=== PATIENT | female | born 1965 | race Caucasian/White ===

== ENCOUNTER 2020-08-11 07:07 | Emergency (ER) | payer BC ==
[2020-08-11] MEDS ORDERED: Acetaminophen 500 MG Tab PO ONE (07:11)
[2020-08-11] MEDS ORDERED: Ibuprofen 800 MG Tab PO ONE (07:12)
[2020-08-11] MEDS ORDERED: Aspirin 81 MG Tab.EC PO ONE (07:29)
[2020-08-11] MEDS ORDERED: Aspirin 81 MG Tab.Chew PO ONE (07:32)
[2020-08-11] MEDS ORDERED: Nitroglycerin 0.4 MG Tab.SL SL ONE (07:37)
--- NOTE | 2020-08-11 08:03 | EDM.PDOC ---
ED HPI GENERAL MEDICAL PROBLEM - General Chief Complaint: General Stated Complaint: CHEST IS BURNING Time Seen by Provider: 08/11/20 07:15 Source of Information: Reports: Patient History Limitations: Reports: No Limitations - History of Present Illness INITIAL COMMENTS - FREE TEXT/NARRATIVE: Patient presented to the ED because of dental pain, chest tightness which started yesterday. there is no nausea, vomiting, dyspnea. There is no fever or chills, cough/cold symptoms. She is concerned because she had AMI with stent placement in January 2019. 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 - Related Data Allergies Allergy/AdvReac Type Severity Reaction Status Date / Time No Known Allergies Allergy Verified 08/11/20 07:18 ED ROS GENERAL - Review of Systems Review Of Systems: See Below Constitutional: Reports: No Symptoms HEENT: Reports: Dental Pain Respiratory: Reports: No Symptoms Cardiovascular: Reports: Chest Pain Endocrine: Reports: No Symptoms GI/Abdominal: Reports: No Symptoms : Reports: No Symptoms Musculoskeletal: Reports: No Symptoms Skin: Reports: No Symptoms ED EXAM, GENERAL - Physical Exam Exam: See Below Exam Limited By: No Limitations General Appearance: Alert, No Apparent Distress Eye Exam: Bilateral Eye: PERRL Ears: Normal External Exam Nose: Normal Inspection, Normal Mucosa, No Blood Throat/Mouth: Normal Inspection, Normal Lips, Normal Teeth, Normal Gums Head: Atraumatic, Normocephalic Neck: Normal Inspection, Supple, Non-Tender, Full Range of Motion Respiratory/Chest: No Respiratory Distress, Lungs Clear, Normal Breath Sounds, No Accessory Muscle Use, Chest Non-Tender Cardiovascular: Normal Peripheral Pulses, Regular Rate, Rhythm, No Edema, No Gallop, No JVD, No Murmur, No Rub GI/Abdominal: Normal Bowel Sounds, Soft, Non-Tender, No Organomegaly Back Exam: Normal Inspection, Full Range of Motion Extremities: Normal Inspection, Normal Range of Motion, Non-Tender Neurological: Alert, Oriented, CN II-XII Intact, Normal Cognition Psychiatric: Anxious, Depressed Mood Skin Exam: Warm, Dry, Intact Course - Vital Signs Text/Narrative:: Labs/EKG was discussed with patient Aspirin 324 po x1 Heparin bolus 4000 U IV Heparin drip @ 1000 U/Hr Case discussed with Dr Sierra Anthony Recorded V/S: Last Vital Signs Temp -17.6 C L 08/11/20 07:20 Pulse 81 08/11/20 07:20 Resp 18 08/11/20 07:20 BP 134/91 H 08/11/20 07:55 Pulse Ox 98 08/11/20 07:20 - Orders/Labs/Meds Orders: Active Orders 24 hr Category Date Time Status EKG Documentation Completion [RC] ASDIRECTED Care 08/11/20 07:11 Active Chest 1V Frontal [CR] Stat Exams 08/11/20 08:21 Ordered D-DIMER QUANTITATIVE [COAG] Stat Lab 08/11/20 07:40 Received PRO B-TYPE NATRIUR PEPT,BNPPRO [CHEM] Stat Lab 08/11/20 07:40 Received Heparin Sodium/0.45% NaCl [Heparin 25,000 Units in 1/2 Med 08/11/20 08:30 Ordered NS 500 ML] 500 ml IV ASDIRECTED EKG 12 Lead [EK] Routine Ther 08/11/20 07:11 Ordered Medication Orders Heparin Sodium/Sodium Chloride (Heparin 25,000 Units In 1/2 Ns 500 Ml) 500 mls @ 20 mls/hr IV ASDIRECTED [facility] Labs: Laboratory Tests 08/11/20 08/11/20 08/11/20 Range/Units 07:40 07:40 07:40 WBC 11.3 H (3.0-10.3) x10-3/uL RBC 4.82 (3.60-5.20) x10(6)uL Hgb 13.9 (11.4-15.5) g/dL Hct 42.7 (34.2-48.2) % MCV 88.7 (76.7-100.5) fL MCH 28.9 (23.9-33.9) pg MCHC 32.6 (31.9-34.8) g/dL RDW 14.9 (12.3-16.5) % Plt Count 303 (151-488) x10(3)uL MPV 8.1 (7.1-12.4) fL Neut % (Auto) 69.7 (30.8-76.2) % Lymph % (Auto) 21.2 (18.4-52.1) % Imperial % (Auto) 7.6 (4.4-15.7) % Eos % (Auto) 0.8 (0.6-8.1) % Baso % (Auto) 0.7 (0.2-1.5) % Neut # (Auto) 7.9 H (1.5-6.3) x10-3/uL Lymph # (Auto) 2.4 (1.0-4.4) x10-3/uL Imperial # (Auto) 0.9 (0.3-1.0) x10-3/uL Eos # (Auto) 0.1 (0.0-0.8) x10-3/uL Baso # (Auto) 0.1 (0.0-0.1) x10-3/uL PT (9.0-11.1) sec INR (1.00-1.24) APTT (24.4-33.2) SECONDS Sodium 140 (135-145) mmol/L Potassium 4.2 (3.5-5.3) mmol/L Chloride 104 (100-110) mmol/L Carbon Dioxide 24 (21-32) mmol/L BUN 11 (7-18) mg/dL Creatinine 0.8 (0.55-1.02) mg/dL Est Cr Clr Drug Dosing TNP Estimated GFR (MDRD) > 60 (>60) BUN/Creatinine Ratio 13.8 (9-20) Glucose 113 (80-116) mg/dL Calcium 10.0 (8.6-10.2) mg/dL Total Bilirubin 0.5 (0.1-1.3) mg/dL AST 48 H (5-25) IU/L ALT 34 (12-36) U/L Alkaline Phosphatase 90 (56-112) IU/L Troponin I 2971.0 H* (4.0-60.3) pg/mL Total Protein 7.7 (6.0-8.0) g/dL Albumin 3.5 (3.5-5.2) g/dL Globulin 4.2 g/dL Albumin/Globulin Ratio 0.8 08/11/20 Range/Units 07:40 WBC (3.0-10.3) x10-3/uL RBC (3.60-5.20) x10(6)uL Hgb (11.4-15.5) g/dL Hct (34.2-48.2) % MCV (76.7-100.5) fL MCH (23.9-33.9) pg MCHC (31.9-34.8) g/dL RDW (12.3-16.5) % Plt Count (151-488) x10(3)uL MPV (7.1-12.4) fL Neut % (Auto) (30.8-76.2) % Lymph % (Auto) (18.4-52.1) % Imperial % (Auto) (4.4-15.7) % Eos % (Auto) (0.6-8.1) % Baso % (Auto) (0.2-1.5) % Neut # (Auto) (1.5-6.3) x10-3/uL Lymph # (Auto) (1.0-4.4) x10-3/uL Imperial # (Auto) (0.3-1.0) x10-3/uL Eos # (Auto) (0.0-0.8) x10-3/uL Baso # (Auto) (0.0-0.1) x10-3/uL PT 9.8 (9.0-11.1) sec INR 0.90 L (1.00-1.24) APTT 24.1 L (24.4-33.2) SECONDS Sodium (135-145) mmol/L Potassium (3.5-5.3) mmol/L Chloride (100-110) mmol/L Carbon Dioxide (21-32) mmol/L BUN (7-18) mg/dL Creatinine (0.55-1.02) mg/dL Est Cr Clr Drug Dosing Estimated GFR (MDRD) (>60) BUN/Creatinine Ratio (9-20) Glucose (80-116) mg/dL Calcium (8.6-10.2) mg/dL Total Bilirubin (0.1-1.3) mg/dL AST (5-25) IU/L ALT (12-36) U/L Alkaline Phosphatase (56-112) IU/L Troponin I (4.0-60.3) pg/mL Total Protein (6.0-8.0) g/dL Albumin (3.5-5.2) g/dL Globulin g/dL Albumin/Globulin Ratio Meds: Medications Generic Name Dose Route Start Last Admin Trade Name Freq PRN Reason Stop Dose Admin Heparin Sodium/Sodium Chloride 500 mls @ 20 mls/hr 08/11/20 08:30 Heparin 25,000 Units In 1/2 Ns 500 Ml IV ASDIRECTED SARITHA Discontinued Medications Generic Name Dose Route Start Last Admin Trade Name Freq PRN Reason Stop Dose Admin Acetaminophen 1,000 mg 08/11/20 07:11 08/11/20 07:46 Tylenol Extra Strength PO 08/11/20 07:12 1,000 mg ONETIME ONE Administration Aspirin 324 mg 08/11/20 07:29 08/11/20 07:47 Halfprin PO 08/11/20 07:30 Not Given ONETIME ONE Aspirin 243 mg 08/11/20 07:32 08/11/20 07:47 Aspirin PO 08/11/20 07:33 243 mg ONETIME ONE Administration Heparin Sodium (Porcine) 4,000 units 08/11/20 08:27 Heparin Sodium IVPUSH 08/11/20 08:28 NOW STA Ibuprofen 800 mg 08/11/20 07:12 08/11/20 07:48 Motrin PO 08/11/20 07:13 800 mg ONETIME ONE Administration Nitroglycerin 0.4 mg 08/11/20 07:37 08/11/20 07:55 Nitrostat SL 08/11/20 07:38 Not Given ONETIME ONE Departure - Departure Time of Disposition: 09:00 Disposition: DC/Tfer to Acute Hospital 02 Condition: Good Clinical Impression: AMI (acute myocardial infarction) - Discharge Information Referrals: PCP,None [Primary Care Provider] - Forms: ED Department Discharge Sepsis Event Note (ED) - Focused Exam Vital Signs: Vital Signs Temp Pulse Resp BP BP Pulse Ox 08/11/20 07:55 134/91 H 08/11/20 07:20 -17.6 C L 81 18 134/91 H 98 - My Orders Last 24 Hours: My Active Orders 08/11/20 07:11 EKG Documentation Completion [RC] ASDIRECTED EKG 12 Lead [EK] Routine 08/11/20 07:40 D-DIMER QUANTITATIVE [COAG] Stat PRO B-TYPE NATRIUR PEPT,BNPPRO [CHEM] Stat 08/11/20 08:21 Chest 1V Frontal [CR] Stat 08/11/20 08:30 Heparin Sodium/0.45% NaCl [Heparin 25,000 Units in 1/2 NS 500 ML] 500 ml IV ASDIRECTED - Assessment/Plan Last 24 Hours: My Active Orders 08/11/20 07:11 EKG Documentation Completion [RC] ASDIRECTED EKG 12 Lead [EK] Routine 08/11/20 07:40 D-DIMER QUANTITATIVE [COAG] Stat PRO B-TYPE NATRIUR PEPT,BNPPRO [CHEM] Stat 08/11/20 08:21 Chest 1V Frontal [CR] Stat 08/11/20 08:30 Heparin Sodium/0.45% NaCl [Heparin 25,000 Units in 1/2 NS 500 ML] 500 ml IV ASDIRECTED
[2020-08-11] MEDS ORDERED: Heparin Sodium 5,000 Units/ML Vial IVPUSH STA (08:27)
[2020-08-11] MEDS ORDERED: Heparin Sodium/0.45% NaCl 500 ML IV SCH (08:30)
== END 2020-08-11 09:05 ==
LOC: FB.ED 07:07
DX: I21.9 Acute myocardial infarction, unspecified (principal)
CPT/HCPCS: 36415; 71045; 80053; 83880; 84484; 85025; 85379; 85610; 85730; 93005; 96365; 99285; A9270; J1644